=== PATIENT | male | born 1925 | race Native Hawaiian/Other Pacific Islander ===

== ENCOUNTER 2016-07-04 14:39 | Outpatient (CLI) | payer OTHER, MEDICARE ==
[~2016-07-04 14:39] MED LIST: AMLO5TAB PO; CELE200C2 PO; CHLOROQUINE PO; FURO40TA93 PO; GABA400C2 PO; HYDR200T3 PO; HYDR25TA15 PO; LIPITOR20 MG PO; LORTAB1 TAB PO; MISO200T2 PO; MONT10TA PO; PANT40TA PO; PRED5TAB3 PO; SERT100T PO; SPIR25TA66 PO; TAMS0.4C PO; TRAM50TA PO; VIMOVO PO; ZANTAC300 MG PO
== END 2016-07-04 20:14 | disposition home or self-care (01) ==
LOC: CT 14:39
DX: R41.82 Altered mental status, unspecified (principal); R06.02 Shortness of breath; M25.512 Pain in left shoulder